=== PATIENT | male | born 1990 | race African-American/Black ===

== ENCOUNTER 2021-11-04 17:25 | Emergency (ER) | payer MEDICAID ==
[~2021-11-04] VITALS: Ht 182.9 cm; Wt 79.4 kg
[2021-11-04 17:37] VITALS: BP 135/100
--- NOTE | 2021-11-04 17:51 | NUR ---
taken to bed 8 via w/c
[2021-11-04] MEDS ORDERED: KETOROLAC 60 MG/2 ML VIAL IM ONE (18:30)
--- NOTE | 2021-11-04 18:35 | NUR ---
MD DELANEY AT BEDSIDE FOR EVALUATION
--- NOTE | 2021-11-04 18:40 | NUR ---
31YO MALE PT C/O R SIDED NUMBING AND 10/10 HEADACHE [id number]. PT STATES SUDDEN ONSET OF R SIDED NUMBING AND WEAKNESS, DENIES LOSS OF SENSATION. 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 DENIES INJURY , DIZZINESS, N/V/D, CHEST PAIN OR SOB. PT AAOX4, SPEAKING IN FULL SENTENCES. PT ON DIRECTOR PHYSICAL THERAPY. HOB POSITIONED PER COMFORT , BED AT LOWEST POSITION, BED RAILS UP X2. HX; ASTHMA ALLERGIES: AMOXICILLIN
--- NOTE | 2021-11-04 19:25 | NUR ---
REPORT GIVEN TO CASTRO SALGUERO. ALL QUESTIONS ANSWERED. TRANSFER OF CARE AT THIS TIME
--- NOTE | 2021-11-04 19:27 | NUR ---
MD NOBLE ASSESSING PATIENT
[2021-11-04] MEDS ORDERED: IBUP-2213 PO (19:31)
--- NOTE | 2021-11-04 19:40 | NUR ---
PATIENTS OUTSIDE IN THE LOBBY YELLING DEMANDING TO SPEAK TO NURSE AND PHYSICIAN. "IM A NURSE AND WHY WASNT A CBC DONE TO RULE OUT STROKE". SPEAKING TO IN LOBBY.
[2021-11-04 19:41] VITALS: BP 121/66
--- NOTE | 2021-11-04 19:41 | NUR ---
Patient discharged with v/s stable. Written and verbal after care instructions given and explained. Patient alert, oriented and verbalized understanding of instructions. Ambulatory with steady gait. All questions addressed prior to discharge. ID band removed. Patient advised to follow up with PMD. Rx of IBUPROFEN given.
--- NOTE | 2021-11-04 19:41 | NUR ---
Chart checked and completed.
== END 2021-11-04 19:38 | disposition home or self-care (01) ==
LOC: MED 17:25
DX: R51.9 Headache, unspecified (principal); R20.0 Anesthesia of skin; R07.89 Other chest pain; R42 Dizziness and giddiness; F12.90 Cannabis use, unspecified, uncomplicated; Z98.890 Other specified postprocedural states
CPT/HCPCS: 70450; 96372; 99284; J1885